=== PATIENT | female | born 1945 | race Caucasian/White ===

== ENCOUNTER 2019-10-29 09:09 | Day surgery (SDC) | payer MEDICARE ==
[~2019-10-29] VITALS: Ht 162.6 cm; Wt 67.2 kg
[~2019-10-29 09:09] MED LIST: ACET325 PO; Ativan1 MG PO; NAPR375 PO; OMEGA FISH OIL; OMEP20ER PO; PREMPRO; TRAM50 PO
--- NOTE | 2019-10-29 10:44 | NUR ---
10/29/19 1044 Judah Everett PATIENT DETERMINED TO BE ASA APPROPRIATE FOR PROPOFOL SEDATION PRIOR TO START OF PROCEDURE BY DR. Jose Block Placed. 3-LEAD EKG REVIEWED WITH PHYSICIAN PRIOR TO START OF PROCEDURE. History, Chart, Medications and Allergies reviewed before start of procedure. MONITOR INTACT WITH CONTINUOUS PULSE OXIMETRY AND INTERMITTENT BP. O2 VIA N/C INTACT THROUGHOUT SEDATION/PROCEDURE.
--- NOTE | 2019-10-29 11:32 | NUR ---
Patient up to Ambulate independently. Gait steady. Discharge instructions reviewed with patient. Patient verbalizes understanding. Copy given to patient to take home. Patient States Post-Procedure ride home has been arranged. Discharged via wheelchair to private car for ride home.
== END 2019-10-29 11:42 | disposition home or self-care (01) ==
LOC: ORSCMMR 09:09 → ORD 10:00 → ORSCMMR 10:00
PROVIDERS: Internal Medicine Gastroenterology
PROC: 0DB98ZX Excision of Duodenum, Via Natural or Artificial Opening Endoscopic, Diagnostic (ICD-10-PCS; principal; 2019-10-29 10:00)
PROC: 0DB68ZX Excision of Stomach, Via Natural or Artificial Opening Endoscopic, Diagnostic (ICD-10-PCS; principal; 2019-10-29 10:00)
DX: D64.9 Anemia, unspecified (principal); Z87.11 Personal history of peptic ulcer disease; Z87.891 Personal history of nicotine dependence
CPT/HCPCS: 88305; 88342; J2704; J7120

== ENCOUNTER → 2021-01-20 | Outpatient (CLI) | payer MEDICARE ==
[2021-01-21 13:11] LABS: HPV 16 Negative (Negative); HPV 18 Negative (Negative); HPV OTHER HR TYPES Negative (Negative)
== END | disposition home or self-care (01) ==
LOC: LAB SHORT 10:30 → LAB 10:30
PROVIDERS: Obstetrics & Gynecology
DX: Z01.419 Encounter for gynecological examination (general) (routine) without abnormal findings (principal)
CPT/HCPCS: 87624; G0123

== ENCOUNTER 2021-04-19 07:45 | Day surgery (SDC) | payer MEDICARE ==
[~2021-04-19] VITALS: Ht 162.6 cm; Wt 69.1 kg
[2021-04-19] MEDS ORDERED: TRAZ50 PO (08:36)
[2021-04-19] MEDS ORDERED: IBUP400 PO (08:37)
--- NOTE | 2021-04-19 08:38 | NUR ---
Ambulatory in Day Surgery History, Chart, Medications and Allergies reviewed before start of procedure. Lungs clear T/O to Auscultation. Patient confirms NPO status and agrees with scheduled surgery. Pre-Op teaching done. Pt verbalizes understanding.
--- NOTE | 2021-04-19 18:25 | NUR ---
PATIENT CURRENTLY SITTING UP IN BED READING A BOOK. PATIENT HAS NOTE COMPLAINTS OF NAUSEA AND MINIMAL PAIN NOTED AND DENIES MEDS FOR PAIN. PATIENT HAS STOOD AT BEDSIDE TWICE SINCE SURGERY, SLIGHT DIZZINESS NOTED. VÁSQUEZ CATH IS PATENT DRAINING CLEAR YELLOW URINE, VÁSQUEZ TO BE REMOVED IN THE AM PER ORDERS. NO SIGNS OR SYMPTOMS ACUTE DISTRESS NOTED. CALL LIGHT AND WATER IN EASY REACH. ABLE TO MAKE NEEDS AND WANTS KNOWN. PAD CHANGED DUE TO SOME BLEEDING ON PAD, AL CARE GIVEN AND DISPOSABLE UNDERWEAR AND PAD PLACED. WILL MONITOR.
[2021-04-20 04:56] LABS: BASOPHILS ABSOLUTE AUTO 0.01 K/mm3 (0.00-0.23); BASOPHILS PERCENT AUTO 0 % (0-2); EOSINOPHILS ABSOLUTE AUTO 0.01 K/mm3 (0.00-0.68); EOSINOPHILS PERCENT AUTO 0 % (0-6); Hematocrit 34.8 % (33.0-51.0); Hemoglobin 11.3 g/dL (11.5-16.0); IMMATURE GRAN ABSOLUTE AUTO 0.02 K/mm3 (0.00-0.10); IMMATURE GRAN PERCENT AUTO 0 % (0-1); LYMPHOCYTES ABSOLUTE AUTO 1.23 K/mm3 (0.84-5.20); LYMPHOCYTES PERCENT AUTO 15 % (21-46); MONOCYTES ABSOLUTE AUTO 0.65 K/mm3 (0.16-1.47); MONOCYTES PERCENT AUTO 8 % (4-13); Mean Corpuscular HGB 29.6 pg (26.0-34.0); Mean Corpuscular HGB Conc 32.5 g/dL (31.5-36.5); Mean Corpuscular Volume 91 fL (80-100); Mean Platelet Volume 10.5 fL (9.1-12.4); NEUTROPHILS ABSOLUTE AUTO 6.18 K/mm3 (1.96-9.15); NEUTROPHILS PERCENT AUTO 76 % (41-73); Platelet Count 200 K/mm3 (150-400); RDW Coefficient Variation 13.9 % (11.7-14.2); RDW Standard Deviation 47.1 fL (35.1-46.3); Red Blood Cell Count 3.82 M/mm3 (3.80-5.20)
--- NOTE | 2021-04-20 06:01 | NUR ---
PT IS A/OX3. ABLE TO MAKE HER NEEDS KNOWN. NO EVENTS OVER NIGHT. VÁSQUEZ CATHETER D/C'D AT 0500. PT IS DTV BY 1100. WEARING MESH PANTIES W/PADS, SCANT AMT BLOODY DRNG ON PAD. HEATING PAD & PRN TRAMADOL CONTROLLING PAIN WELL. REFUSED PRN APAP OR NORCO D/T HAVING DIFFICULTY SWALLOWING PILLS. RN DID OFFER TO CUT PILLS, BUT PT CONT TO REFUSE. TOLERATING REG DIET WELL. NO N/V.
[2021-04-20] MEDS ORDERED: DOCU100 PO (09:14)
[2021-04-20] MEDS ORDERED: IBUP600 PO (09:14)
[2021-04-20] MEDS ORDERED: Norco 5-325 Ta1 EACH PO (09:15)
--- NOTE | 2021-04-20 16:14 | NUR ---
DISCHARGE: DISCHARGE INSTRUCTIONS GIVEN TO PATIENT. PATIENT INSTRUCTED TO URINATE AT LEAST EVERY 2 HRS WHILE AWAKE TO KEEP BLADDER EMPTY. NO SIGNS OR SYMPTOMS ACUTE DISTRESS NOTED. PATIENT VERBALIZED UNDERSTANDING OF DISCHARGE INSTUCTIONS. PATIENT DAUGHTER HERE TO TAKE HER HOME VIA PRIVATE VEHICLE. NO COMPLAINTS OF PAIN OR NAUSEA AT THIS TIME.
== END 2021-04-20 16:33 | disposition home or self-care (01) ==
LOC: ORSCMMR 07:45 → ORD 11:30 → SURS 12:05 → ORSCMMR 04-20 16:33
PROVIDERS: Obstetrics & Gynecology
PROC: 0JQC0ZZ Repair Pelvic Region Subcutaneous Tissue and Fascia, Open Approach (ICD-10-PCS; principal; 2021-04-19 09:30)
PROC: 0UQF0ZZ Repair Cul-de-sac, Open Approach (ICD-10-PCS; principal; 2021-04-19 09:30)
PROC: 0UT97ZZ Resection of Uterus, Via Natural or Artificial Opening (ICD-10-PCS; principal; 2021-04-19 09:30)
DX: N81.10 Cystocele, unspecified (principal); N81.6 Rectocele; N81.5 Vaginal enterocele; N80.0 Endometriosis of uterus; D25.9 Leiomyoma of uterus, unspecified; Z87.891 Personal history of nicotine dependence; Z79.899 Other long term (current) drug therapy
CPT/HCPCS: 36415; 85025; 88307; A9270; J0171; J0690; J1100; J1885; J2250; J2370; J2405; J2704; J3010; J7120

== ENCOUNTER → 2023-06-14 | Outpatient (CLI) | payer MEDICARE ==
[~2023-06-14] MED LIST changes: +DOCU100 PO; +IBUP400 PO; +IBUP600 PO; +Norco 5-325 Ta1 EACH PO; +TRAZ50 PO
== END ==
LOC: LAB SHORT 14:49 → LAB 14:49
PROVIDERS: Physician Assistant
DX: Z51.81 Encounter for therapeutic drug level monitoring (principal); Z79.899 Other long term (current) drug therapy
CPT/HCPCS: G0480

== ENCOUNTER → 2023-09-13 | Outpatient (CLI) | payer MEDICARE ==
[2023-09-21 15:21] LABS: O-DESMETHYLTRAMADOL,URN, QUANT 2684 ng/mL; TRAMADOL, URN, QUANT >10000 ng/mL
== END ==
LOC: LAB 16:08 → LAB SHORT 16:08
PROVIDERS: Physician Assistant
DX: G89.4 Chronic pain syndrome (principal); Z79.899 Other long term (current) drug therapy
CPT/HCPCS: G0480

== ENCOUNTER 2023-10-17 14:39 | Emergency (ER) | payer MEDICARE ==
[~2023-10-17] VITALS: Ht 157.5 cm; Wt 68.5 kg
[2023-10-17 15:00] VITALS: BP 139/94
== END 2023-10-17 17:21 | disposition left against medical advice (07) ==
LOC: ER 14:39
DX: M62.81 Muscle weakness (generalized) (principal); R10.30 Lower abdominal pain, unspecified; Z53.29 Procedure and treatment not carried out because of patient's decision for other reasons
CPT/HCPCS: 99281